=== PATIENT | female | born 1950 | race Caucasian/White ===

== ENCOUNTER 2020-11-10 15:37 | Emergency (ER) | payer MEDICARE, OTHER ==
[~2020-11-10] VITALS: Ht 157.5 cm; Wt 93.0 kg
--- NOTE | 2020-11-10 15:47 | NUR ---
at bedside for assessment
[2020-11-10] MEDS: IV NORMAL SALINE 1000 ML BAG IV ONE ×3 (15:53→19:20)
[2020-11-10] MEDS ORDERED: ONDANSETRON 4 MG/2 ML VIAL ONE ×4 (15:59→18:31)
[2020-11-10] MEDS: ONDANSETRON 4 MG/2 ML VIAL IV ONE ×4 (16:00→18:47)
[2020-11-10 16:34] LABS: BASOPHILS % (AUTO) 0.4 % (0.0-2.0); EOSINOPHILS # (AUTO) 0.1 K/uL (0.0-0.7); EOSINOPHILS % (AUTO) 1.2 % (0.0-7.0); HEMATOCRIT 40.4 % (31.2-41.9); HEMOGLOBIN 13.6 g/dL (10.9-14.3); LYMPHOCYTES # (AUTO) 2.2 K/uL (20.0-40.0); LYMPHOCYTES % (AUTO) 21.9 % (20.5-51.5); MEAN CORPUSCULAR HEMOGLOBIN 31.1 uug (24.7-32.8); MEAN CORPUSCULAR HGB CONC 34 g/dL (32.3-35.6); MEAN CORPUSCULAR VOLUME 92.5 fL (75.5-95.3); MONOCYTES # (AUTO) 0.5 K/uL (2.0-10.0); MONOCYTES % (AUTO) 5.2 % (0.0-11.0); NEUTROPHILS # (AUTO) 7.2 K/uL (1.8-8.9); NEUTROPHILS % (AUTO) 71.3 % (38.5-71.5); PLATELET COUNT (AUTO) 249 K/uL (179-408); RED BLOOD CELL COUNT(AUTO) 4.37 MIL/uL (3.63-4.92); WHITE BLOOD COUNT (AUTO) 10.1 K/uL (3.8-11.8)
[2020-11-10 16:41] LABS: POTASSIUM 4.1 mmol/L (3.5-5.1)
[2020-11-10 16:46] LABS: BILIRUBIN,DIRECT 0.2 mg/dL (0.0-0.2); BILIRUBIN,TOTAL 0.8 mg/dL (0.2-1.0); TOTAL PROTEIN, SERUM 7.3 g/dL (6.4-8.2)
--- NOTE | 2020-11-10 17:50 | NUR ---
Patient taken to radiology department for CT at this time
[2020-11-10] MEDS ORDERED: ONDA4TAB5 PO (18:30)
--- NOTE | 2020-11-10 19:20 | NUR ---
Note made on 192 is by Nba Champion and not Belkis Dumont.
--- NOTE | 2020-11-10 19:20 | NUR ---
Patient states dizziness and requests treatment to address it, MD Higuera made aware.
[2020-11-10] MEDS: MECLIZINE HCL 25 MG TABLET PO ONE (20:35)
[2020-11-10] MEDS ORDERED: MECLIZINE HCL 25 MG TABLET ONE (20:38)
--- NOTE | 2020-11-10 21:40 | NUR ---
Patient vomiting continously, MD Ruiz made aware.
[2020-11-10] MEDS ORDERED: METOCLOPRAMIDE HCL 10 MG/2 ML VIAL ONE (22:09)
[2020-11-10] MEDS: METOCLOPRAMIDE HCL 10 MG/2 ML VIAL IV ONE (22:10)
--- NOTE | 2020-11-10 22:52 | NUR ---
Spoke to [facility] for patient transfer. Awaiting call back for further instruction.
--- NOTE | 2020-11-10 22:55 | NUR ---
Dr. Ramírez, [facility] will be calling back to discuss patient case with JU.
--- NOTE | 2020-11-10 23:28 | NUR ---
Patient unable to pee when provided bedpan. classroom technology coach at bedside to take patient for CT scan.
--- NOTE | 2020-11-11 00:26 | NUR ---
Patient verbalizes that she is still not able to provide a urine sample when offered the bedpan. MD Ruiz made aware.
--- NOTE | 2020-11-11 00:27 | NUR ---
MD Ruiz on phone following up with Vaughn BARRERA.
--- NOTE | 2020-11-11 00:30 | NUR ---
Patient refuses acquiring of urine sample via straight cath. MD Ruiz made aware.
--- NOTE | 2020-11-11 01:08 | NUR ---
[place] [facility] called back to state that -Patient will be going to [facility] ER -Accepting MD Gonzales - -[facility] ETA 2am
--- NOTE | 2020-11-11 01:42 | NUR ---
Report given to Demetrio Gonzalez RN @ [facility]
--- NOTE | 2020-11-11 02:30 | NUR ---
[facility] at 0300.
--- NOTE | 2020-11-11 03:10 | NUR ---
[facility] arrived to pear picker the patient, stunner and shackler received report and transfer packet.
--- NOTE | 2020-11-11 03:15 | NUR ---
Patient Tranfers to outside Facility via [facility] Physician: MD Gonzales Location: [facility]
== END 2020-11-11 03:15 | disposition short-term general hospital (02) ==
LOC: ER 15:40
DX: K52.9 Noninfective gastroenteritis and colitis, unspecified (principal); R27.0 Ataxia, unspecified; R00.1 Bradycardia, unspecified; Z20.822 Contact with and (suspected) exposure to COVID-19
CPT/HCPCS: 36415; 70030-TC; 70450; 71045; 83690; 85025; 85730; 93005; A4663; J2405; J2765; J7030; J8597